=== PATIENT | male | born 1970 | race Caucasian/White ===

== ENCOUNTER 2024-10-30 06:27 | Day surgery (SDC) | payer BC, SELFPAY | END 2024-10-30 12:38 | disposition home or self-care (01) | LOC: GI 06:27 | PROVIDERS: ATTENDING PHYSICIAN Internal Medicine | DX: Z12.11 Encounter for screening for malignant neoplasm of colon (principal); K57.30 Diverticulosis of large intestine without perforation or abscess without bleeding; K58.9 Irritable bowel syndrome, unspecified | CPT/HCPCS: G0121 ==